=== PATIENT | male | born 1975 | race Caucasian/White ===

== ENCOUNTER 2017-02-15 01:19 | Emergency (ER) | payer OTHER ==
[2017-02-15 03:33] LABS: HEMOGLOBIN 15.4 gm/dl (14.0-17.5); RED BLOOD COUNT 5.06 M/UL (4.20-5.50); WHITE BLOOD COUNT 15.8 K/UL (4.5-11.0)
[2017-02-15 03:53] LABS: BUN/CREATININE RATIO 4 (0-10)
== END 2017-02-15 04:15 | disposition home or self-care (01) ==
LOC: ER1 01:19
PROVIDERS: Family Medicine
DX: R10.811 Right upper quadrant abdominal tenderness (principal); R11.2 Nausea with vomiting, unspecified; E11.9 Type 2 diabetes mellitus without complications; F17.210 Nicotine dependence, cigarettes, uncomplicated; G89.29 Other chronic pain; Z88.5 Allergy status to narcotic agent; Z91.041 Radiographic dye allergy status
CPT/HCPCS: 36415; 80053; 81001; 82962; 83690; 85025; 99284; J2270; J2405